=== PATIENT | female | born 1965 | race Caucasian/White ===

== ENCOUNTER → 2017-02-01 | Outpatient (CLI) | payer OTHER ==
[~2017-02-01] MED LIST: ALBU1AER9 INH; LISI5TAB3 PO; PRLSR20 PO
--- NOTE | 2017-02-01 16:40 | MAMMOGRAPHY REPORT ---
BILATERAL DIGITAL SCREENING MAMMOGRAM TOMOSYNTHESIS WITH CAD: 02/01/2017 CLINICAL HISTORY: Routine screening. Patient has no complaints. TECHNIQUE: Breast tomosynthesis in addition to standard 2D mammography was performed. Current study was also evaluated with a Computer Aided Detection (CAD) system. COMPARISON: Comparison is made to exams dated: 11/27/2013 mammogram, 07/01/2009 mammogram - [facility], 06/19/2009, and 12/01/1998 mammogram - [facility]. BREAST COMPOSITION: The tissue of both breasts is almost entirely fatty. FINDINGS: There is a newly visualized lobulated and circumscribed 5 mm mass in the lower inner ante rior left breast, for which additional targeted ultrasound and possible additional mammographic view s is recommended. No other suspicious mass, architectural distortion or cluster of microcalcifications is seen bilater ally. IMPRESSION: ACR BI-RADS CATEGORY 0: INCOMPLETE EVALUATION: NEED ADDITIONAL IMAGING EVALUATION The new lobulated and circumscribed 5 mm mass in the lower inner anterior left breast needs addition al imaging evaluation. The patient will be called to schedule an appointment. Approximately 10% of breast cancers are not detected with mammography. A negative mammographic repor t should not delay biopsy if a clinically suggestive mass is present. Zarina Storey M.D. ay/:02/01/2017 15:51:35 Face Man: Victorina EUCEDA(Vineet)(Bud)(BD), [facility] letter sent: Addl Imaging 0 BI-RADS Code: ACR BI-RADS Category 0: Incomplete Evaluation: Need Additional Imaging Evaluation
== END | disposition home or self-care (01) ==
LOC: C.MAMM 14:12
PROVIDERS: ATTEND Family Medicine
DX: Z12.31 Encounter for screening mammogram for malignant neoplasm of breast (principal); N63 Unspecified lump in breast

== ENCOUNTER → 2017-09-26 | Day surgery (SDC) | payer OTHER ==
[2017-08-31 12:31] VITALS: Ht 175.3 cm; Wt 104.5 kg
[~2017-09-26] VITALS: Ht 175.3 cm; Wt 104.5 kg
[~2017-09-26] MED LIST changes: +ACET-1256 PO; -ALBU1AER9 INH; +AMLO-114 PO; +ATOR10TA82 PO; +ATROPINE SULFATE 0.1 MG/ML 5ML SYR IV PRN; +BUPRTAB51 PO; +CETI10TA84 PO; +EpHEDrine SULFATE INJ 50 MG/ML AMP IV PRN; +HYDR25TA4 PO; +LIDOCAINE HCL 2% 2 ML VIAL (20MG/ML) ONE; -LISI5TAB3 PO; +MIDAZOLAM HCL 1 MG/ML 2ML VIAL ONE; +MOME200A INH; +MONT1TAB3 PO; +POTA20TA16 PO; +PROPOFOL IV EMULSION 10 MG/ML 20 ML VIAL IV ONE; +SODIUM CHLORIDE 0.9% 500ML 500 ML IV ONE; +VNTHFA/IN INH; +ZNTT/150 PO
--- NOTE | 2017-09-26 14:59 | Endo History and Physical ---
History & Physical Date of Service: Sep 26, 2017. Chief Complaint: Screening Referring Physician: Dr. Teresa Valles History of Present Illness 52 yo CF who presents for screening colonoscopy. Past Surgical History Hx Internal Defibrillator: No Hx Pacemaker: No Hx Abdominal Surgery: Yes (LAPAROSCOPY FOR FIBROIDS) Hx of Implantable Prosthesis: No Hx Post-Op Nausea and Vomiting: Yes (SEVERE PONV) Hx Cancer Surgery: Yes (HYSTERECTOMY BSO) Hx Orthopedic: Yes (LEFT RADIUS/ULNA FX 2 PINS PLACED 2007,KNEE SCOPE) Hx Urinary Tract Surgery: No Family History None Social History Smoking Status: Heavy Tobacco Smoker Hx Substance Use: No Hx Alcohol Use: Yes (OCC SOCIAL) Allergies Coded Allergies: No Known Allergies (Verified , 09/26/17) Current Medications Reported Home Medications Medications Dose Route/Sig Max Daily Dose Days Date Category Klor-Con (Potassium Chloride) 20 Meq Tabcr 20 Meq PO QAM 08/31/17 Reported Tylenol (Acetaminophen) 500 Mg Tab 1,000 Mg PO PRN 08/31/17 Reported Singulair (Montelukast Sodium) 10 Mg Tab 10 Mg PO HS 08/31/17 Reported Zyrtec (Cetirizine HCl) 10 Mg Tab 10 Mg PO QAM 08/31/17 Reported Lipitor (Atorvastatin Calcium) 10 Mg Tab 10 Mg PO QAM 08/31/17 Reported Wellbutrin Xl (Bupropion Hcl) 300 Mg Tab 450 Mg PO QAM 08/31/17 Reported Zantac (Ranitidine HCl) 150 Mg Tab 150 Mg PO BID 08/31/17 Reported Prilosec (Omeprazole) 20 Mg Capcr 20 Mg PO QAM 08/31/17 Reported Norvasc (Amlodipine Besylate) 10 Mg Tab 10 Mg PO QAM 08/31/17 Reported Hctz (Hydrochlorothiazide) 25 Mg Tab 25 Mg PO QAM 08/31/17 Reported Dulera 200/5 Mcg (Mometasone Furoate-Formoterol) 1 Aer Aer 1 Aer INH BID 08/31/17 Reported Ventolin Hfa (Albuterol) 200 Puffs/85957 Mcg Aers 2 Puffs INH PRN 08/31/17 Reported Vital Signs Weight (Kilograms): 104.55 Height (Feet): 5 Height (Inches): 9 Date Time Temp Pulse Resp B/P (MAP) Pulse Ox O2 Delivery O2 Flow Rate FiO2 09/26/17 14:22 36.6 89 18 160/90 (113) 95 Room Air Physical Exam General Appearance: WD/WN, no apparent distress Respiratory/Chest: Auscultation: breath sounds normal Cardiovascular: Heart Auscultation: RRR Abdomen: Bowel Sounds: normal Inspection & Palpation: soft, non-distended, no tenderness, guarding & rebound Assessment and Plan Assessment: 52 yo CF who presents for screening colonoscopy. Plan: Proceed with colonoscopy.
--- NOTE | 2017-09-26 15:46 | Anesthesiology Progress Note ---
Anesthesia Post Op Note Date & Time Sep 26, 2017 at 15:45 Vital Signs Pain Intensity: 0 Vital Signs Past 12 Hours Date Time Temp Pulse Resp B/P (MAP) Pulse Ox O2 Delivery O2 Flow Rate FiO2 09/26/17 14:22 36.6 89 18 160/90 (113) 95 Room Air Notes Mental Status: alert / awake / arousable, participated in evaluation Pt Amnestic to Procedure: Yes Nausea / Vomiting: adequately controlled Pain: adequately controlled Airway Patency, RR, SpO2: stable & adequate BP & HR: stable & adequate Hydration State: stable & adequate Anesthetic Complications: no major complications apparent The patient's vital signs are stable.
--- NOTE | 2017-09-26 15:57 | GI REPORT ---
Procedure Date: 09/26/2017 2:50 PM Procedure: Colonoscopy Indications: Screening for colorectal malignant neoplasm Medicines: Monitored Anesthesia Care Complications: No immediate complications. Estimated Blood Loss: Estimated blood loss: none. Procedure: Pre-Anesthesia Assessment: - Prior to the procedure, a History and Physical was performed, and patient medications and allergies were reviewed. The patient's tolerance of previous anesthesia was also reviewed. The risks and benefits of the procedure and the sedation options and risks were discussed with the patient. All questions were answered, and informed consent was obtained. Prior Anticoagulants: The patient has taken no previous anticoagulant or antiplatelet agents. ASA Grade Assessment: III - A patient with severe systemic disease. After reviewing the risks and benefits, the patient was deemed in satisfactory condition to undergo the procedure. After I obtained informed consent, the scope was passed under direct vision. Throughout the procedure, the patient's blood pressure, pulse, and oxygen saturations were monitored continuously. The scope was introduced through the anus and advanced to the terminal ileum. The colonoscopy was performed without difficulty. The patient tolerated the procedure well. The quality of the bowel preparation was good. The terminal ileum, ileocecal valve, appendiceal orifice, and rectum were photographed. Findings: The perianal and digital rectal examinations were normal. A 12 mm polyp was found in the sigmoid colon. The polyp was pedunculated. The polyp was removed with a hot snare. Resection and retrieval were complete. To prevent bleeding after the polypectomy, one hemostatic clip was successfully placed (MR conditional). There was no bleeding at the end of the procedure. A 6 mm polyp was found in the rectum. The polyp was sessile. The polyp was removed with a hot snare. Resection and retrieval were complete. Multiple small-mouthed diverticula were found in the sigmoid colon. Non-bleeding internal hemorrhoids were found during retroflexion. The hemorrhoids were small. Impression: - One 12 mm polyp in the sigmoid colon, removed with a hot snare. Resected and retrieved. Clip (MR conditional) was placed. - One 6 mm polyp in the rectum, removed with a hot snare. Resected and retrieved. - Diverticulosis in the sigmoid colon. - Non-bleeding internal hemorrhoids. Recommendation: - Resume previous diet. - Continue present medications. - Repeat colonoscopy for surveillance based on pathology results. - Return to primary care physician as previously scheduled. Abhay Fulton, 09/26/2017 3:56:34 PM This report has been signed electronically. Note Initiated On: 09/26/2017 2:50 PM I attest to the content of the Intraoperative Record and orders documented therein, exceptions below
--- NOTE | 2017-09-26 16:03 | Discharge Instructions ---
Endoscopy Patient Instructions Date / Procedure(s) Performed Sep 26, 2017. Colonoscopy Allergy Information Coded Allergies: No Known Allergies (Verified , 09/26/17) Discharge Date / Findings Sep 26, 2017. Colon polyps Diverticulosis Internal hemorrhoids Medication Instructions Stopped Medication(s): Patient was told to hold hctz and one other pill that she can't remember. Restart Stopped Medication(s): OK to resume all medications today as prescribed Reported Home Medications Medications Dose Route/Sig Max Daily Dose Days Date Category Klor-Con (Potassium Chloride) 20 Meq Tabcr 20 Meq PO QAM 08/31/17 Reported Tylenol (Acetaminophen) 500 Mg Tab 1,000 Mg PO PRN 08/31/17 Reported Singulair (Montelukast Sodium) 10 Mg Tab 10 Mg PO HS 08/31/17 Reported Zyrtec (Cetirizine HCl) 10 Mg Tab 10 Mg PO QAM 08/31/17 Reported Lipitor (Atorvastatin Calcium) 10 Mg Tab 10 Mg PO QAM 08/31/17 Reported Wellbutrin Xl (Bupropion Hcl) 300 Mg Tab 450 Mg PO QAM 08/31/17 Reported Zantac (Ranitidine HCl) 150 Mg Tab 150 Mg PO BID 08/31/17 Reported Prilosec (Omeprazole) 20 Mg Capcr 20 Mg PO QAM 08/31/17 Reported Norvasc (Amlodipine Besylate) 10 Mg Tab 10 Mg PO QAM 08/31/17 Reported Hctz (Hydrochlorothiazide) 25 Mg Tab 25 Mg PO QAM 08/31/17 Reported Dulera 200/5 Mcg (Mometasone Furoate-Formoterol) 1 Aer Aer 1 Aer INH BID 08/31/17 Reported Ventolin Hfa (Albuterol) 200 Puffs/10390 Mcg Aers 2 Puffs INH PRN 08/31/17 Reported Provider Instructions Activity Restrictions - No exercising or heavy lifting for 24 hours. - Do not drink alcohol the day of the procedure. - Do not drive a car or operate machinery until the day after the procedure. - Do not make any important decisions or sign important papers in 24 hours after the procedure. Following Day: - Return to full activity which may include returning to work/school. Diet Start your diet with liquids and light foods (jello, soup, juice, toast). Then eat your usual diet if not nauseated. Treatment For Common After Affects For mild abdominal pain, bloating, or excessive gas: - Rest - Eat lightly - Lie on right side Follow-Up Information Follow-up with Dr. Teresa Valles as scheduled Anesthesia Information What You Should Know You have had a procedure that required some medicine to reduce anxiety and discomfort. This treatment is called moderate sedation. After receiving the treatment, you may be sleepy, but you will be able to breathe on your own. The effects of the treatment may last for several hours. Follow these instructions along with Activity/Diet recommendations noted above: * Do NOT do anything where dizziness or clumsiness would be dangerous. * Rest quietly at home today, then you can be up and about tomorrow. * Have a responsible person stay with you the rest of today. * You may have had an I.V. today. If so, you may take the dressing off later today. Recommendations Call your doctor if: * Trouble breathing * Continuous vomiting for more than 24 hours * Temperature above 101 degrees * Severe abdominal pain or bloating * Pain not relieved by pain medicine ordered * There is increased drainage or redness from any incision * A large amount of rectal bleeding greater than 2-3 tablespoons. (If you had a polyp/s removed or have hemorrhoids, a small amount of blood - from the rectum is to be expected.) * You have any unanswered questions or concerns. IN THE EVENT OF A SERIOUS EMERGENCY, GO TO THE NEAREST EMERGENCY ROOM Your discharge instructions were prepared by provider Abhay Fulton. Patient Instructions Signature Page Elena Meza Patient (or Guardian) Signature/Date: I have read and understand the instructions given to me by my caregivers. Caregiver/RN/Doctor Signature/Date: The above-named patient and/or guardian has received patient instructions on this date. + Original Patient Signature Page (only) stays with chart. Please make copy for patient.
[2017-09-26 16:06] VITALS: BP 119/88; PULSE 79; O2SAT 96
== END | disposition home or self-care (01) ==
LOC: C.GI 13:36
PROVIDERS: ATTEND Internal Medicine
DX: Z12.11 Encounter for screening for malignant neoplasm of colon (principal); D12.5 Benign neoplasm of sigmoid colon; K62.1 Rectal polyp; K64.8 Other hemorrhoids; K57.30 Diverticulosis of large intestine without perforation or abscess without bleeding; J44.9 Chronic obstructive pulmonary disease, unspecified; M19.90 Unspecified osteoarthritis, unspecified site; J45.909 Unspecified asthma, uncomplicated; E78.5 Hyperlipidemia, unspecified; E66.9 Obesity, unspecified; F17.200 Nicotine dependence, unspecified, uncomplicated; Z85.41 Personal history of malignant neoplasm of cervix uteri; Z90.710 Acquired absence of both cervix and uterus; Z98.890 Other specified postprocedural states; Z90.89 Acquired absence of other organs